=== PATIENT | male | born 2000 | race Caucasian/White ===

== ENCOUNTER 2021-04-29 18:11 | Emergency (ER) | payer OTHER, SELFPAY ==
[2021-04-29 18:20] VITALS: BP 128/72; PULSE 73; RESP 16; TEMP 36.7; O2SAT 99
--- NOTE | 2021-04-29 18:39 | ED.GENADULT ---
HPI - General Adult General Chief complaint: Ear Stated complaint: sinus issue/ear pain Time Seen by Provider: 04/29/21 18:39 Source: patient and RN notes reviewed Mode of arrival: ambulatory Limitations: no limitations History of Present Illness HPI narrative: 20-year-old male presents with complaints of upper respiratory infection, cough, some facial congestion, facial pressure, LT otalgia, and intermittent headache (not the worst of his life) for the past 18 days. Nabor reports increasing facial congestion, facial pressure and coughing for the past 72 hours. No treatment. No facial swelling.? Cough without chest congestion. ?Nasal congestion and rhinorrhea. ?Sore throat. ?Pain is bilateral. ?Hurts to swallow. ?No high fevers, drooling, neck or throat swelling. ?No voice change. ?No nausea, vomiting, or abdominal pain. ?Tolerating liquids well. ?Denies chills, dyspnea, difficulty swallowing, jaw pain, dental pain, foreign body sensation, and rash. ?No chest pain or shortness of breath. Remains active. The patient reports he was diagnosed with COVID-19 July 2020. The patient reports he is not waiting for the results of a COVID-19 lab test. The patient reports he does not have weakness, fatigue, or myalgia. The patient reports he does not have any loss of taste and diarrhea. Denies recent traveling. Denies concerns for COVID-19 or exposures. At this time, the patient is not suspected of having COVID-19. ? Some parts of this dictation were generated by voice recognition software and may contain typographical and/or grammatical inaccuracies. Related Data Allergies Allergy/AdvReac Type Severity Reaction Status Date / Time No Known Allergies Allergy Verified 04/29/21 18:18 Review of Systems Review of Systems: Narrative: CONSTITUTIONAL: Denies fever, chills, sweats. EYES: Denies visual changes, redness, discharge. ENT: Complains of rhinorrhea, congestion, facial congestion and pressure, sore throat, LT otalgia. CARDIOVASCULAR: Denies chest pain, palpitations, edema. RESPIRATORY: Denies dyspnea, wheezing. Complaints of cough. GASTROINTESTINAL: Denies abdominal pain, nausea, vomiting, diarrhea. GENITOURINARY: Denies dysuria, hematuria, abnormal discharge SKIN: Denies rash or itching. MUSCULOSKELETAL: Denies acute back pain, joint pain, or myalgia. NEUROLOGIC: Denies numbness or focal weakness. Complains of intermittent BACH. PSYCHIATRIC: Denies anxiety or depression. All other systems reviewed & are unremarkable except as noted in HPI and below. [facility] Past Medical History Medical History (Updated 04/29/21 @ 19:26 by RADHA Lugo) Encounter for well adult exam without abnormal findings Enlarged thyroid gland Microcytic anemia School physical exam Surgical History Surgical History (Updated 04/29/21 @ 19:26 by RADHA Lugo) No significant past surgical history Family History Family History (Updated 04/29/21 @ 19:27 by RADHA Lugo) Father Alive and well Mother Lymphoma Social History Social History (Updated 04/29/21 @ 19:28 by RADHA Lugo) Smoking status: Never smoker Tobacco type: cigarettes Second hand tobacco smoke exposure: No Alcohol intake: current Substance use: never Substance use type: does not use Living arrangements: with family Occupation/Education: student Gender identity (if verbalized by the patient): Male Sexual Orientation (if Verbalized by the Patient): Straight or Heterosexual Comments At time of signature, agree with the nurse past medical, surgical, social, and family history. There is no relevant family history pertinent to the presenting complaint. Exam Narrative: Exam Narrative: GENERAL: This is a well-nourished, well-developed patient, in no apparent distress. Talks in full sentences and ambulates with steady gait without dyspnea. HEAD: Normocephalic, atraumatic. EYES: PERRL. Sclera clear/white. Vision
== END 2021-04-29 18:55 | disposition home or self-care (01) ==
PROVIDERS: Emergency Provider Nurse Practitioner Family
DX: H92.01 Otalgia, right ear (principal); J01.11 Acute recurrent frontal sinusitis; E04.9 Nontoxic goiter, unspecified; D50.9 Iron deficiency anemia, unspecified
CPT/HCPCS: 99213; G0463